=== PATIENT | male | born 1985 | race African-American/Black ===

== ENCOUNTER 2017-12-03 20:48 | Emergency (ER) | payer OTHER ==
--- NOTE | 2017-12-03 22:16 | XR ---
EXAMINATION TYPE: XR chest 2V DATE OF EXAM: 12/03/2017 COMPARISON: NONE HISTORY: Chest pain TECHNIQUE: Frontal and lateral views of the chest are obtained. FINDINGS: Heart and mediastinum are normal. Lungs are clear. Diaphragm is normal. Bony thorax is nor mal. IMPRESSION: Normal chest
[2017-12-03 23:09] VITALS: BP 124/81; PULSE 60; RESP 16; TEMP 97
--- NOTE | 2017-12-03 23:43 | ED ---
Chest Pain HPI - General Chief Complaint: Chest Pain Stated Complaint: Chest Pain Time Seen by Provider: 12/03/17 21:29 Source: patient Mode of arrival: ambulatory Limitations: no limitations - History of Present Illness Initial Comments: 32-year-old male patient presented to the emergency department today for evaluation of cough and left-sided chest pain. Patient states that chest pain started a couple of hours ago. He states that it is intermittent. He states that the pain does increase with palpation of the chest. He denies any sputum production or hemoptysis. Denies any shortness of breath. He denies any dizziness or weakness. He denies any nausea or vomiting. Denies any sweats, fevers, or chills. Denies any history of similar symptoms. He denies any alcohol or drug use. Denies any recent physical activity or changed his routine. He denies taking anything for the pain. Patient denies any recent rash , fever, chills, abdominal pain, diarrhea, constipation, back pain, numbness, tingling, hematuria, dysuria, urinary urgency, urinary frequency, headache, visual changes, or any other complaints. - Related Data Allergies Allergy/AdvReac Type Severity Reaction Status Date / Time No Known Allergies Allergy Verified 12/03/17 20:53 Review of Systems ROS Statement: Those systems with pertinent positive or pertinent negative responses have been documented in the HPI. ROS Other: All systems not noted in ROS Statement are negative. EKG Findings - EKG Comments: EKG Findings:: EKG obtained at 2144 shows normal sinus rhythm with a ventricular rate of 60, P return of a 154, QRS duration of 80, QT 392, QTc 392. No evidence of ST elevation or depression. Past Medical History Past Medical History: No Reported History History of Any Multi-Drug Resistant Organisms: None Reported Past Surgical History: No Surgical Hx Reported Past Psychological History: No Psychological Hx Reported Smoking Status: Never smoker Past Alcohol Use History: Occasional Past Drug Use History: None Reported General Exam Limitations: no limitations General appearance: alert, in no apparent distress, other (This is a well- developed, well-nourished adult male patient in no acute distress. Patient is laughing and joking with his significant other at bedside. Vital signs upon presentation are temperature 98.2F, pulse 79, respirations 18, blood pressure 126/64, pulse ox 100% on room air.) Eye exam: Present: normal appearance, PERRL, EOMI. Absent: scleral icterus, conjunctival injection, periorbital swelling ENT exam: Present: normal exam, normal oropharynx, mucous membranes moist Neck exam: Present: normal inspection. Absent: tenderness, meningismus, lymphadenopathy Respiratory exam: Present: normal lung sounds bilaterally, chest wall tenderness (Anterior left sided). Absent: respiratory distress, wheezes, rales , rhonchi, stridor Cardiovascular Exam: Present: regular rate, normal rhythm, normal heart sounds. Absent: systolic murmur, diastolic murmur, rubs, gallop, clicks GI/Abdominal exam: Present: soft, normal bowel sounds. Absent: distended, tenderness, guarding, rebound, rigid Neurological exam: Present: alert, oriented X3, CN II-XII intact Psychiatric exam: Present: normal affect, normal mood Skin exam: Present: warm, dry, intact, normal color. Absent: rash Course Vital Signs 12/03/17 12/03/17 20:50 23:06 Temperature 98.2 F 97 F L Pulse Rate 79 60 Respiratory 18 16 Rate Blood Pressure 126/64 124/81 O2 Sat by Pulse 100 100 Oximetry Chest Pain MDM - MDM RADIOLOGY:Two-view x-ray of the chest shows a heart and mediastinum are normal. Lungs are clear. Diaphragm is normal. Bony thorax is normal. Impression by Dr. Prieto shows normal chest. 32-year-old male patient presented to the emergency department today for evaluation of left-sided chest pain and cough. Physical examination does reveal some mild left-sided chest tenderness. Lungs are clear to auscultation with good air movement. Chest x-ray shows no acute cardiopulmonary process. EKG is obtained and shows normal sinus rhythm. Upon reevaluation patient states that the pain has improved somewhat. Patient instructed to follow-up with his primary care physician for recheck as soon as possible. Return parameters discussed in detail. He verbalizes understanding and agrees with this plan. Disposition Clinical Impression: Chest pain Disposition: HOME SELF-CARE Condition: Good Instructions: Chest Pain (ED) Additional Instructions: Follow-up with her primary care physician for recheck in 1-2 days. Take ibuprofen for symptom relief. Return here immediately for any new, worsening, or concerning symptoms. Is patient prescribed a controlled substance at d/c from ED?: No Referrals: None,Stated [Primary Care Provider] - 1-2 days Time of Disposition: 23:43
== END 2017-12-03 23:58 | disposition home or self-care (01) ==
LOC: EC 20:48
DX: R07.9 Chest pain, unspecified (principal); R05 Cough
CPT/HCPCS: 71046; 93005; 99285

== ENCOUNTER 2018-03-24 19:33 | Emergency (ER) | payer OTHER ==
[2018-03-24 19:36] VITALS: RESP 18
[2018-03-24] MEDS ORDERED: AMOXIC-POT CLAV 875MG STARTER 2 EACH TABLET PO STA (20:01)
[2018-03-24] MEDS ORDERED: ACET/COD 300 MG/30 MG STARTER PACK 6 TAB BTL PO STA (20:01)
--- NOTE | 2018-03-24 20:03 | ED ---
ENT HPI - General Chief complaint: Dental/Oral Stated complaint: DENTAL PAIN Time Seen by Provider: 03/24/18 19:41 Source: patient, RN notes reviewed, old records reviewed Mode of arrival: ambulatory Limitations: no limitations - History of Present Illness Initial comments: Patient is a 32-year-old male presents emergency Department with right-sided facial pain and dental pain. Patient reports that the pain started approximately 8 hours ago. Patient states that he has no previous history of issues with his teeth. He does not follow-up with a dentist. Patient denies any fevers or chills. - Related Data Previous Rx's Medication Instructions Recorded Acetaminophen with Codeine 1 tab PO Q6H PRN 3 Days #12 tab 03/24/18 [Tylenol w/codeine #3] Amoxic-Pot Clav 875-125Mg 1 tab PO Q12HR #20 tablet 03/24/18 [Augmentin 875-125] Ibuprofen [Motrin] 600 mg PO Q6HR PRN #20 tab 03/24/18 Allergies Allergy/AdvReac Type Severity Reaction Status Date / Time No Known Allergies Allergy Verified 03/24/18 19:36 Review of Systems ROS Statement: Those systems with pertinent positive or pertinent negative responses have been documented in the HPI. ROS Other: All systems not noted in ROS Statement are negative. Past Medical History Past Medical History: No Reported History History of Any Multi-Drug Resistant Organisms: None Reported Past Surgical History: No Surgical Hx Reported Past Psychological History: No Psychological Hx Reported Smoking Status: Never smoker Past Alcohol Use History: Occasional Past Drug Use History: None Reported General Exam - General Exam Comments Initial Comments: 32-year-old -British male. No acute distress. Limitations: no limitations General appearance: alert, in no apparent distress Head exam: Present: atraumatic, normocephalic, normal inspection Eye exam: Present: normal appearance, PERRL, EOMI. Absent: scleral icterus, conjunctival injection, periorbital swelling ENT exam: Present: normal exam, mucous membranes moist. Absent: normal oropharynx (Dental carry. Broken tooth #31. Patient has surrounding erythema over the gumline.) Neck exam: Present: normal inspection. Absent: tenderness, meningismus, lymphadenopathy Respiratory exam: Present: normal lung sounds bilaterally. Absent: respiratory distress, wheezes, rales, rhonchi, stridor Cardiovascular Exam: Present: regular rate, normal rhythm, normal heart sounds. Absent: systolic murmur, diastolic murmur, rubs, gallop, clicks GI/Abdominal exam: Present: soft, normal bowel sounds. Absent: distended, tenderness, guarding, rebound, rigid Extremities exam: Present: normal inspection, full ROM, normal capillary refill. Absent: tenderness, pedal edema, joint swelling, calf tenderness Back exam: Present: normal inspection Course Vital Signs 03/24/18 19:34 Temperature 98.3 F Pulse Rate 55 L Respiratory 18 Rate Blood Pressure 135/90 O2 Sat by Pulse 100 Oximetry Medical Decision Making - Medical Decision Making 32-year-old male right-sided dental pain. Onset today. Patient broke his tooth #31. There is also evidence of surrounding gingival erythema and swelling. Patient was started on Augmentin for an infection. Discussed ibuprofen and discharge and Patient was reports the pain medicine. Given information for dental clinic. Patient understands treatment plan will comply. Return parameters were discussed. Disposition Clinical Impression: Dental caries, Broken tooth Disposition: HOME SELF-CARE Condition: Good Instructions: Dental Abscess (ED) Additional Instructions: Patient is follow-up with primary care physician. Return to emergency department if any alarming signs or symptoms occur. [facility] [id number] [email or web address] [address] [phone] (existing clients only) For new clients: [phone] 1st consult: $50 (includes Xrays) Usually 30% less then private dentist for visits after. [employer] Have to pay $50 for Xrays anmd rest is covered. [phone] Prescriptions: Acetaminophen with Codeine [Tylenol w/codeine #3] 1 tab PO Q6H PRN 3 Days #12 tab PRN Reason: Pain Amoxic-Pot Clav 875-125Mg [Augmentin 875-125] 1 tab PO Q12HR #20 tablet Ibuprofen [Motrin] 600 mg PO Q6HR PRN #20 tab PRN Reason: Pain Is patient prescribed a controlled substance at d/c from ED?: Yes When asked, does pt state using other controlled substances?: No If prescribed controlled substance>3 days was MAPS reviewed?: Prescribed <3 Days If opioid is for acute pain is fill amount 7 days or less?: Yes If Rx opioid, was Start Talking consent form obtained?: Yes Referrals: Walter Renteria MD [Primary Care Provider] - 1-2 days Time of Disposition: 20:03
[2018-03-24 20:30] VITALS: BP 136/77; PULSE 68; TEMP 98.2
== END 2018-03-24 20:30 | disposition home or self-care (01) ==
LOC: EC 19:33
DX: S02.5XXA Fracture of tooth (traumatic), initial encounter for closed fracture (principal); K02.9 Dental caries, unspecified; R51 Headache; X58.XXXA Exposure to other specified factors, initial encounter
CPT/HCPCS: 99283

== ENCOUNTER 2018-04-29 18:48 | Emergency (ER) | payer OTHER ==
--- NOTE | 2018-04-29 20:53 | ED ---
Headache HPI - General Chief Complaint: Headache Stated Complaint: Headache Time Seen by Provider: 04/29/18 20:11 Source: patient, family (girlfriend), RN notes reviewed Mode of arrival: wheelchair Limitations: no limitations - History of Present Illness Initial Comments: This is a 32-year-old male who presents to the emergency department with chief complaint of headache. Patient is accompanied by his girlfriend who contributes to history. She states that at approximately 5:30 this evening patient was in the kitchen. She states that he turned around, looked at her and his eyes began to blink rapidly. She states that he stared off into space and his eyes became glossy, he blinked rapidly again and then returned to normal. She states that this episode lasted approximately 5-10 seconds. Patient states he does not remember this incident. He states that he did develop a pounding headache in both temples. He states that it lasted about 2 hours and then went away. He did not take any medication for it. He states that he had another episode like this while at work within the past month. He states he was told by a coworker that he seemed like "he was not there." At this time, patient denies any symptoms. He denies fevers or chills, chest pain or shortness of breath, abdominal pain, nausea or vomiting, dizziness or headache. Patient denies any medical issues, takes no medications and denies drug use. - Related Data Home Medications Medication Instructions Recorded Confirmed Acetaminophen [Tylenol] 500 mg PO DAILY 03/24/18 03/24/18 Previous Rx's Medication Instructions Recorded Acetaminophen with Codeine 1 tab PO Q6H PRN 3 Days #12 tab 03/24/18 [Tylenol w/codeine #3] Amoxic-Pot Clav 875-125Mg 1 tab PO Q12HR #20 tablet 03/24/18 [Augmentin 875-125] Ibuprofen [Motrin] 600 mg PO Q6HR PRN #20 tab 03/24/18 Allergies Allergy/AdvReac Type Severity Reaction Status Date / Time No Known Allergies Allergy Verified 04/29/18 19:15 Review of Systems ROS Statement: Those systems with pertinent positive or pertinent negative responses have been documented in the HPI. ROS Other: All systems not noted in ROS Statement are negative. Past Medical History Past Medical History: No Reported History History of Any Multi-Drug Resistant Organisms: None Reported Past Surgical History: No Surgical Hx Reported Past Psychological History: No Psychological Hx Reported Smoking Status: Never smoker Past Alcohol Use History: Occasional Past Drug Use History: None Reported General Exam - General Exam Comments Initial Comments: General: Awake and alert, well-developed; in no apparent distress. Girlfriend is at bedside. Patient sitting comfortably on ED stretcher. Does not appear ill. HEENT: Head atraumatic, normocephalic. Pupils are equal, round and reactive to light. Extraocular movements intact. Oropharynx moist without erythema or exudate. Neck: Supple. Normal ROM. Cardiovascular: Regular rate and rhythm. No murmurs, rubs or gallops. Chest symmetrical. Respiratory: Lungs clear to auscultation bilaterally. No wheezes, rales or rhonchi. Normal respiratory effort with no use of accessory muscles. Musculoskeletal: Normal ROM, no tenderness, strength 5/5 bilateral upper and lower extremities. Ambulating normally. Skin: [place], warm and dry without rashes or lesions. Neurological: Alert and oriented x3. CN II-XII grossly intact. Speech is fluent and answers are appropriate. No focal neuro deficits. Romberg negative. Rapid alternating movements normal. Finger-nose testing normal. Psychiatric: Normal mood and affect. No overt signs of depression or anxiety noted. Course Vital Signs 04/29/18 19:11 Temperature 98.1 F Pulse Rate 90 Respiratory 16 Rate Blood Pressure 115/78 O2 Sat by Pulse 99 Oximetry Medical Decision Making - Medical Decision Making This is a 32-year-old male who presents to the emergency department with chief complaint of headache. Patient's girlfriend reports an episode of patient staring off into space and patient does not remember the incident. Patient reports 2 of these episodes in the past one month. Workup for seizure was performed. Computed tomography scan of the brain reveals no acute abnormalities. CBC is unremarkable. CMP does reveal a high calcium at 10.6, total protein and albumin. UA and urine drug screen are unremarkable. Case was discussed with attending physician, Dr. Salinas also evaluated the patient. Recommended admission with neurology consult. However, patient states he would like to be discharged home. He does not drive a vehicle. Dr. Salinas was in contact with patient's primary care provider, Dr. Renteria who recommends patient following up with himself in the office. Patient is in agreement with this plan and voices understanding. His vital signs have been stable and he is in no acute distress. He will be discharged home at this time. All questions have been answered. - Lab Data Result diagrams: 04/29/18 20:38 04/29/18 20:38 Lab Results 04/29/18 04/29/18 04/29/18 Range/Units 20:37 20:38 20:38 WBC 8.3 (3.8-10.6) k/uL RBC 5.60 (4.30-5.90) m/uL Hgb 15.1 (13.0-17.5) gm/dL Hct 48.5 (39.0-53.0) % MCV 86.7 (80.0-100.0) fL MCH 27.0 (25.0-35.0) pg MCHC 31.2 (31.0-37.0) g/dL RDW 13.5 (11.5-15.5) % Plt Count 290 (150-450) k/uL Neutrophils % 68 % Lymphocytes % 22 % Monocytes % 4 % Eosinophils % 4 % Basophils % 0 % Neutrophils # 5.6 (1.3-7.7) k/uL Lymphocytes # 1.9 (1.0-4.8) k/uL Monocytes # 0.4 (0-1.0) k/uL Eosinophils # 0.3 (0-0.7) k/uL Basophils # 0.0 (0-0.2) k/uL Sodium 141 (137-145) mmol/L Potassium 4.6 (3.5-5.1) mmol/L Chloride 103 (98-107) mmol/L Carbon Dioxide 27 (22-30) mmol/L Anion Gap 11 mmol/L BUN 13 (9-20) mg/dL Creatinine 0.78 (0.66-1.25) mg/dL Est GFR (CKD-EPI)AfAm >90 (>60 ml/min/1.73 sqM) Est GFR (CKD-EPI)NonAf >90 (>60 ml/min/1.73 sqM) Glucose 97 (74-99) mg/dL Calcium 10.4 H (8.4-10.2) mg/dL Total Bilirubin 0.5 (0.2-1.3) mg/dL AST 33 (17-59) U/L ALT 36 (21-72) U/L Alkaline Phosphatase 55 (38-126) U/L Total Protein 9.0 H (6.3-8.2) g/dL Albumin 5.1 H (3.5-5.0) g/dL Urine Color Light Yellow Urine Appearance Clear (Clear) Urine pH 5.0 (5.0-8.0) Ur Specific [place] 1.009 (1.001-1.035) Urine Protein Negative (Negative) Urine Glucose (UA) Negative (Negative) Urine Ketones Negative (Negative) Urine Blood Negative (Negative) Urine Nitrite Negative (Negative) Urine Bilirubin Negative (Negative) Urine Urobilinogen <2.0 (<2.0) mg/dL Ur Leukocyte Esterase Negative (Negative) Urine Opiates Screen Not Detected (NotDetected) Ur Oxycodone Screen Not Detected (NotDetected) Urine Methadone Screen Not Detected (NotDetected) Ur Propoxyphene Screen Not Detected (NotDetected) Ur Barbiturates Screen Not Detected (NotDetected) U Tricyclic Antidepress Not Detected (NotDetected) Ur Phencyclidine Scrn Not Detected (NotDetected) Ur Amphetamines Screen Not Detected (NotDetected) U Methamphetamines Scrn Not Detected (NotDetected) U Benzodiazepines Scrn Not Detected (NotDetected) Urine Cocaine Screen Not Detected (NotDetected) U Marijuana (THC) Screen Not Detected (NotDetected) - EKG Data EKG Comments: 20:52:36. Normal sinus rhythm. Ventricular rate 67 bpm, TN interval 158, QRS duration 72, QT/QTC 370/390 Disposition Clinical Impression: Seizure-like activity Disposition: HOME SELF-CARE Condition: Good Instructions: New Onset Absence Seizures in Adults (ED) Additional Instructions: Please follow-up with Dr. Renteria in the office within 1-2 days. Return to emergency department if symptoms should worsen or any concerns arise. Is patient prescribed a controlled substance at d/c from ED?: No Referrals: Walter Renteria MD [Primary Care Provider] - 1-2 days Time of Disposition: 21:41
[2018-04-29 20:57] LABS: Appearance,Urine Clear (Clear); Bilirubin,Urine Negative (Negative); Blood,Urine Negative (Negative); Color,Urine Light Yellow; Glucose,Urine (UA) Negative (Negative); Ketones,Urine Negative (Negative); Leukocyte Esterase,Urine Negative (Negative); Nitrite,Urine Negative (Negative); Protein,Urine Negative (Negative); Specific Gravity,Urine 1.009 (1.001-1.035); Urobilinogen,Urine <2.0 mg/dL (<2.0)
[2018-04-29 21:02] LABS: Basophils % (A) 0 %; Eosinophils # (A) 0.3 k/uL (0-0.7); Eosinophils % (A) 4 %; HCT 48.5 % (39.0-53.0); HGB 15.1 gm/dL (13.0-17.5); Lymphocytes # (A) 1.9 k/uL (1.0-4.8); Lymphocytes % (A) 22 %; MCHC 31.2 g/dL (31.0-37.0); MCV 86.7 fL (80.0-100.0); Mean Platelet Volume 6.9; Monocytes # (A) 0.4 k/uL (0-1.0); Monocytes % (A) 4 %; Neutrophils # (A) 5.6 k/uL (1.3-7.7); Neutrophils % (A) 68 %; Platelet Count 290 k/uL (150-450); RDW 13.5 % (11.5-15.5); WBC 8.3 k/uL (3.8-10.6)
[2018-04-29 21:07] LABS: Amphetamine Screen,Urine Not Detected (NotDetected); Barbiturate Screen,Urine Not Detected (NotDetected); Benzodiazepines Screen,Urine Not Detected (NotDetected); Cocaine Screen,Urine Not Detected (NotDetected); Methadone Screen, Urine Not Detected (NotDetected); Opiate Screen,Urine Not Detected (NotDetected); Oxycodone Screen, Urine Not Detected (NotDetected); Phencyclidine Screen,Urine Not Detected (NotDetected); Tricyclic Antidepressant,Urine Not Detected (NotDetected); Urn Cannabinoid Scrn Not Detected (NotDetected)
[2018-04-29 21:17] LABS: ALT 36 U/L (21-72); AST 33 U/L (17-59); Albumin 5.1 g/dL (3.5-5.0); Alkaline Phosphatase 55 U/L (38-126); Anion Gap 11 mmol/L; Blood Urea Nitrogen 13 mg/dL (9-20); Calcium 10.4 mg/dL (8.4-10.2); Carbon Dioxide 27 mmol/L (22-30); Chloride 103 mmol/L (98-107); Glucose 97 mg/dL (74-99); Potassium 4.6 mmol/L (3.5-5.1); Sodium 141 mmol/L (137-145); Total Bilirubin 0.5 mg/dL (0.2-1.3)
--- NOTE | 2018-04-29 21:20 | CT ---
EXAMINATION TYPE: CT brain wo con DATE OF EXAM: 04/29/2018 COMPARISON: None HISTORY: BRITTON after visual changes CT DLP: 941.7 mGycm. Automated Exposure Control for Dose Reduction was Utilized. TECHNIQUE: CT scan of the head is performed without contrast. FINDINGS: Ventricles and sulci appear normal. There is no mass effect nor midline shift. There is no sign of intracranial hemorrhage. The calvarium is intact.. Impression Negative CT scan of the brain. Minimal right-sided ethmoid sinusitis noted.
[2018-04-29 21:54] VITALS: BP 121/73; PULSE 70; RESP 18; TEMP 98
== END 2018-04-29 21:54 | disposition home or self-care (01) ==
LOC: EC 18:48
DX: R56.9 Unspecified convulsions (principal); E83.52 Hypercalcemia; R51 Headache; H57.8 Other specified disorders of eye and adnexa; Z79.891 Long term (current) use of opiate analgesic
CPT/HCPCS: 36415; 70450; 80053; 80306; 81003; 85025; 93005; 99284

== ENCOUNTER → 2018-05-17 | Outpatient (CLI) | payer OTHER ==
--- NOTE | 2018-05-17 15:21 | EEG ---
ELECTROENCEPHALOGRAM REPORT DATE OF SERVICE: 05/17/2018 REASON FOR TESTING: Altered mental status and headache. DESCRIPTION OF THE PROCEDURE: This EEG was performed using a 21 channel digital electroencephalograph, following international 10-20 system. DESCRIPTION OF THE RECORDING: From the beginning of the tracing, and with patient's eyes closed, the background rhythm was mostly consisting of 9-10 Hz alpha frequency in the posterior occipital leads. No obvious asymmetry is seen. Occasional muscle artifacts and movement artifacts are seen. Photic stimulation was performed with a good driving response seen. No pathological waves were elicited. Hyperventilation was performed with no buildup of amplitude seen. Again, no pathological waves were elicited. The patient does reach stage II of sleep during the tracing and occasional sleep spindles are seen. No epileptiform discharges were seen. His EKG lead showed a regular rate and rhythm. INTERPRETATION: This asleep and awake EEG can be considered within normal limits. There was no asymmetry seen. No epileptiform discharges were noticed. The absence of epileptiform discharges does not rule out the diagnosis of epilepsy; therefore clinical correlation is recommended. MMEVE / JAMAALN: [id number] /
== END | disposition home or self-care (01) ==
LOC: NEUROMAIN 12:55
PROVIDERS: ATTEND Family Medicine
DX: R55 Syncope and collapse (principal); R51 Headache
CPT/HCPCS: 95819

== ENCOUNTER → 2018-06-01 | Outpatient (CLI) | payer OTHER ==
--- NOTE | 2018-06-01 07:46 | MR ---
EXAMINATION TYPE: MR brain wo/w con DATE OF EXAM: 06/01/2018 COMPARISON: CT brain 04/29/2018 HISTORY: BRITTON, Syncope TECHNIQUE: Multiplanar, multisequence images of the brain and brainstem is performed without and with IV contras t, utilizing 6.5 mL intravenous Gadavist . FINDINGS: Diffusion weighted images demonstrate no evidence of a recent infarct or other diffusion ab normality. There is no extra-axial fluid collection or significant white matter signal abnormality. The ventricular system and cisternal spaces are normal in size and appearance. The brain volume is age appropriate. Midline structures demonstrate normal morphology. The craniocervical junction appears within normal limits. Post contrast images demonstrate no abnormal enhancement. The dural venous sinuses appear pa tent. The visualized sinuses are remarkable for mucosal disease in the maxillary sinuses, ethmoid air cells, frontal sinus and the globes are intact. IMPRESSION: Normal brain MRI. Sinus disease.
== END | disposition home or self-care (01) ==
LOC: RADMRIMAIN 06:27
PROVIDERS: ATTEND Family Medicine
DX: R51 Headache (principal); R55 Syncope and collapse
CPT/HCPCS: 70553; A9585